=== PATIENT | male | born 1965 | race Caucasian/White ===

== ENCOUNTER 2019-04-06 11:07 | Emergency (ER) | payer BC, OTHER ==
[2019-04-06 11:25] VITALS: BP 151/106
--- NOTE | 2019-04-06 12:19 | UC ---
Lower Extremity/Ankle HPI - HPI Summary HPI Summary: 53-year-old male presents with complaints of onset of right ankle and great toe pain, redness, and swelling 4 days ago. Patient has a history of gout states this is very similar to his past flareups. States he is able to walk and bear weight although with some discomfort. Does not some limited range of motion to the ankle. He has been taking indomethacin with no improvement in symptoms. Denies fever, chills, numbness, tingling, or injury. - History of Current Complaint Chief Complaint: UCLowerExtremity Stated Complaint: FOOT AND ANKLE PAIN Time Seen by Provider: 04/06/19 12:04 Hx Obtained From: Patient Pain Intensity: 8 - Allergies/Home Medications Allergies/Adverse Reactions: Allergies Allergy/AdvReac Type Severity Reaction Status Date / Time No Known Allergies Allergy Verified 04/06/19 11:25 Home Medications: Home Medications Atorvastatin* [Lipitor*] 40 mg PO 1700 04/06/19 [History Confirmed 04/06/19] Cholecalciferol TAB* [Vitamin D TAB*] 2,000 units PO DAILY 04/06/19 [History Confirmed 04/06/19] Olmesartan Medoxomil [Benicar] 5 mg PO DAILY 04/06/19 [History Confirmed ] PMH/Surg Hx/FS Hx/Imm Hx - Additional Past Medical History Additional PMH: Gout Endocrine History: Dyslipidemia Cardiovascular History: Hypertension - Surgical History Surgical History: Yes Surgery Procedure, Year, and Place: right knee meniscus, left wrist repair, AC recession repair - Family History Known Family History: Positive: Non-Contributory - Social History Occupation: Employed Full-time Lives: With Family Alcohol Use: None Alcohol Amount: 4-5 Substance Use Type: None Smoking Status (MU): Never Smoked Tobacco Amount Used/How Often: 4 cans/week Review of Systems All Other Systems Reviewed And Are Negative: Yes Constitutional: Negative: Fever, Chills Skin: Negative: Rash Respiratory: Positive: Negative Cardiovascular: Positive: Negative Gastrointestinal: Positive: Negative Genitourinary: Positive: Negative Motor: Negative: Weakness Neurovascular: Negative: Decreased Sensation Musculoskeletal: Positive: Arthralgia - See HPI, Decreased ROM. Negative: Calf Tenderness Neurological: Positive: Negative Is Patient Immunocompromised?: No Physical Exam - Summary Physical Exam Summary: GENERAL APPEARANCE: Well developed, well nourished, alert and cooperative, and appears to be in no acute distress. CARDIAC: Normal S1 and S2. No S3, S4 or murmurs. Rhythm is regular. There is no peripheral edema, cyanosis or pallor. Extremities are warm and well perfused. Capillary refill is less than 2 seconds. Peripheral pulses intact. LUNGS: Clear to auscultation without rales, rhonchi, wheezing or diminished breath sounds. ABDOMEN: Positive bowel sounds. Soft, nondistended, nontender. No guarding or rebound. No masses or hepatosplenomegally. MUSKULOSKELETAL: Normal muscular development. EXTREMITIES: Erythema, edema, and mildly increased warmth to the left ankle and great toe. ROM to the ankle is mildly reduced. No gross deformity. Circulation and sensation intact. SKIN: Skin normal color, texture and turgor. Triage Information Reviewed: Yes Vital Signs: Initial Vital Signs Temp 98.6 F 04/06/19 11:17 Pulse 89 04/06/19 11:17 Resp 16 04/06/19 11:17 BP 151/106 04/06/19 11:17 Pulse Ox 100 04/06/19 11:17 Vital Signs Reviewed: Yes Lower Extremity Course/Dx - Course Course Of Treatment: 53-year-old male presents with complaints of onset of right ankle and great toe pain, redness, and swelling 4 days ago. Patient has a history of gout states this is very similar to his past flareups. States he is able to walk and bear weight although with some discomfort. Does not some limited range of motion to the ankle. He has been taking indomethacin with no improvement in symptoms. Denies fever, chills, numbness, tingling, or injury. Afebrile. Hypertensive otherwise vital signs stable. Patient had erythema, edema, and mildly increased warmth to the left ankle and great toe. ROM to the ankle is mildly reduced. No gross deformity. Circulation and sensation intact. Remainder of exam was unremarkable. Discussed with patient that his symptoms are consistent with a flareup of his gout and without a history of injury do not feel that there would be much benefit to x-rays at this time. I will have the patient stop his indomethacin and start him on a prednisone taper as well as continued conservative treatment for a gout flareup. He is to follow-up with his primary care provider in 3-5 days if symptoms are not improving. Anticipatory guidance and warning symptoms were reviewed with the patient. Verbalizes understanding and agrees with plan of care. - Differential Dx/Diagnosis Differential Diagnosis/HQI/PQRI: Arthritis, Gout, Sprain Provider Diagnosis: Gouty arthritis of right great toe, Gout of right ankle Discharge ED - Sign-Out/Discharge Documenting (check all that apply): Patient Departure All imaging exams completed and their final reports reviewed: No Studies - Discharge Plan Condition: Stable Disposition: HOME Prescriptions: predniSONE TAB* [Deltasone 10 MG TAB*] 10 mg PO DAILY #30 tab Patient Education Materials: Gout (ED) Forms: *Work Release Referrals: Torey Barksdale MD [Primary Care Provider] - 3 Days Additional Instructions: Your symptoms are consistent with a flare up of your gout. Stop the indomethacin. Start prednisone taper. Take 40 mg (4 tabs) for 3 days, then 30 mg (3 tabs) for 3 days, then 20 mg (2 tabs) for 3 days, then 10 mg (1 tab) according to directions then stop. Rest as much as possible. You may continue to do some icing of the ankle to help reduce the swelling. Follow-up with your primary care provider in 3-5 days if symptoms are not improving. Seek immediate medical attention in the emergency room if you develop fever greater than 100.5 F, have severe pain, increased swelling, numbness or tingling in the foot or toes, or any worsening of symptoms. - Billing Disposition and Condition Condition: STABLE Disposition: Home
== END 2019-04-06 12:37 | disposition home or self-care (01) ==
LOC: UCEAST 11:07
DX: M10.9 Gout, unspecified (principal); I10 Essential (primary) hypertension; E78.5 Hyperlipidemia, unspecified; Z79.899 Other long term (current) drug therapy
CPT/HCPCS: 99212; G0463

== ENCOUNTER 2019-08-26 18:16 | Emergency (ER) | payer BC ==
--- OUTSIDE RECORDS SUMMARY | 2019-08-26 20:22 | XMS REPORT | Continuity of Care Document ---
:1965 External Reference #:[id number] Author Name Philip Jose MD (transmitted by agent of provider Joellen Tinoco) Address [address] [place] [id number] Care Team Providers Name Role Phone Torey Barksdale MD - Family Care Team Information Reconciliation Specialist Medicine Problems Description No Information Available Social History Type Date Description Comments Sex Unknown Tobacco Use Start: Unknown Patient has never smoked Smoking Status Reviewed: 07/29/19 Patient has never smoked Allergies, Adverse Reactions, Alerts Description No Known Drug Allergies Medications Active Medications SIG Qnty Indications Ordering Provider Date Naproxen one tab by 180tabs [id number] Philip Jose, 07/29/2019 500mg Tablets mouth twice MD daily Allopurinol 1 by mouth Unknown 300mg Tablets every day Olmesartan Medoxomil 1 by mouth Unknown 20mg every day Tablets Atorvastatin Calcium 1 by mouth Unknown 80mg every day Tablets Sildenafil Citrate use daily as Unknown 100mg needed Tablets Aspirin Ec Low Dose 1 by mouth Unknown 81mg every day Tablets DR Vitamin D High Potency once a day Unknown 25mcg (1000 Ut) Capsules Multi Vitamin 1 by mouth Unknown Tablets every day Immunizations Description No Information Available Vital Signs Date Vital Result Comment 07/29/2019 10:00am Height 72 inches 6'0" Weight 236.00 lb Heart Rate 80 /min BP Systolic 156 mmHg BP Diastolic 90 mmHg Body Temperature 97.1 F Pain Level 0 O2 % BldC Oximetry 96 % BMI (Body Mass Index) 32.0 kg/m2 Results Description No Information Available Procedures Description No Information Available Medical Devices Description No Information Available Encounters Description No Information Available Assessments Date Code Description Provider 07/29/2019 [id number] Idiopathic chronic gout, unspecified site, Philip Jose MD with tophus (tophi) Plan of Treatment Future Appointment(s):09/13/2019 4:00 pm - Philip Jose MD at [facility]07/29/2019 - Philip Jose, [id number] Idiopathic chronic gout, unspecified site, with tophus (tophi)New Medication:Naproxen 500 mg - one tab by mouth twice dailyFollow up:6-8 weeks Functional Status Description No Information Available Mental Status Description No Information Available Referrals Description No Information Available
[2019-08-26 20:48] VITALS: BP 207/119
[2019-08-26 21:08] LABS: Influenza A Molecular Negative (Negative); Influenza B Molecular Negative (Negative)
[2019-08-26] MEDS ORDERED: Albuterol HFA INHALER* 8 gm MDI INH ONE (21:29)
[2019-08-26] MEDS ORDERED: Amoxicillin PO (*) 500 MG CAP PO ONE (21:30)
--- NOTE | 2019-08-26 21:31 | UC ---
Throat Pain/Nasal Mayur HPI - HPI Summary HPI Summary: 53-year-old male comes in with a chief complaint of rhinorrhea sinus pressure and postnasal drip and some wheezing for 2 days. Patient's been exposed to influenza and strep. Rhinorrhea is green. He did try some [id number] medicines which only helped minimally with the symptoms. Has had some wheezing no history of asthma. He has not been able to bring up any sputum. - History of Current Complaint Chief Complaint: UCRespiratory Stated Complaint: CONGESTED Time Seen by Provider: 08/26/19 20:45 Pain Intensity: 4 - Allergies/Home Medications Allergies/Adverse Reactions: Allergies Allergy/AdvReac Type Severity Reaction Status Date / Time No Known Allergies Allergy Verified 08/26/19 20:42 Home Medications: Home Medications Atorvastatin* [Lipitor*] 40 mg PO 1700 04/06/19 [History Confirmed 04/06/19] Cholecalciferol TAB* [Vitamin D TAB*] 2,000 units PO DAILY 04/06/19 [History Confirmed 04/06/19] Olmesartan Medoxomil [Benicar] 5 mg PO DAILY 04/06/19 [History Confirmed ] Amoxicillin PO (*) [Amoxicillin 875 MG (*)] 875 mg PO BID #20 tab 08/26/19 [Rx] PMH/Surg Hx/FS Hx/Imm Hx Previously Healthy: Yes Endocrine History: Dyslipidemia Cardiovascular History: Hypertension - Surgical History Surgical History: Yes Surgery Procedure, Year, and Place: right knee meniscus, left wrist repair, AC recession repair - Family History Known Family History: Positive: Non-Contributory - Social History Alcohol Use: None Alcohol Amount: 4-5 Substance Use Type: None Smoking Status (MU): Never Smoked Tobacco Amount Used/How Often: 4 cans/week Review of Systems All Other Systems Reviewed And Are Negative: Yes Constitutional: Positive: Other - SEE HPI Skin: Positive: Negative Eyes: Positive: Negative ENT: Positive: Sore Throat, Nasal Discharge, Sinus Congestion, Sinus Pain/ Tenderness Respiratory: Positive: Other - SEE HPI Cardiovascular: Positive: Negative Gastrointestinal: Positive: Negative Motor: Positive: Negative Neurovascular: Positive: Negative Musculoskeletal: Positive: Negative Neurological/Mental Status: Positive: Negative Psychological: Positive: Negative Is Patient Immunocompromised?: No Physical Exam Triage Information Reviewed: Yes Appearance: No Pain Distress, Well-Nourished, Ill-Appearing - MILD Vital Signs: Initial Vital Signs Temp 99.3 F 08/26/19 20:42 Pulse 91 08/26/19 20:42 Resp 18 08/26/19 20:42 BP 207/119 08/26/19 20:42 Pulse Ox 96 08/26/19 20:42 Vital Signs Reviewed: Yes Eye Exam: Normal Eyes: Positive: Conjunctiva Clear ENT: Positive: Pharyngeal erythema, Nasal congestion, Nasal drainage, TMs normal Neck: Positive: Supple Respiratory: Positive: Lungs clear, Normal breath sounds, No respiratory distress Cardiovascular: Positive: RRR Musculoskeletal: Positive: Strength Intact, ROM Intact Neurological: Positive: Alert, Muscle Tone Normal Psychological: Positive: Age Appropriate Behavior Skin Exam: Normal Throat Pain/Nasal Course/Dx - Course Course Of Treatment: DISCUSSED VIRAL VERSES BACTERIAL INFECTIONS AND THE ROLE OF ANTIBIOTICS. PATIENT PREFERS TO BE ON ANTIBIOTICS AT THIS TIME. - Differential Dx/Diagnosis Provider Diagnosis: Sinusitis, Bronchospasm Discharge ED - Sign-Out/Discharge Documenting (check all that apply): Patient Departure All imaging exams completed and their final reports reviewed: No Studies - Discharge Plan Condition: Stable Disposition: HOME Prescriptions: Amoxicillin PO (*) [Amoxicillin 875 MG (*)] 875 mg PO BID #20 tab Patient Education Materials: Sinusitis (ED), Bronchospasm (ED) Referrals: Torey Barksdale MD [Primary Care Provider] - Additional Instructions: FOLLOW UP WITH YOUR DOCTOR IF NOT COMPLETELY IMPROVED. GET REEVALUATED SOONER IF NOT IMPROVED OR WORSE OR ANY QUESTIONS OR CONCERNS. - Billing Disposition and Condition Condition: STABLE Disposition: Home
== END 2019-08-26 21:51 | disposition home or self-care (01) ==
LOC: UCEAST 18:16
DX: J32.9 Chronic sinusitis, unspecified (principal); J98.01 Acute bronchospasm; I10 Essential (primary) hypertension; E78.5 Hyperlipidemia, unspecified; Z79.899 Other long term (current) drug therapy
CPT/HCPCS: 87651; 99212; A9270-GY; G0463

== ENCOUNTER 2021-03-06 09:42 | Inpatient (IN) ==
[2021-03-06 10:25] LABS: ABS Lymphocytes 0.3 10^3/ul (1.0-4.8); ABS Monocytes 0.2 10^3/ul (0-0.8); ABS Neutrophils 3.3 10^3/ul (1.5-7.7); Eosinophil % 0.1 %; Hematocrit 45 % (42-52); Hemoglobin 16.1 g/dL (14.0-18.0); Lymphocyte % 7.3 %; Mean Corpuscular HGB Conc 36 g/dL (31-36); Mean Corpuscular Hemoglobin 33 pg (27-31); Mean Corpuscular Volume 91 fL (80-94); Red Blood Count 4.94 10^6 /uL (4.18-5.48); Red Cell Distribution Width 13 % (10-15); White Blood Count 3.7 10^3/uL (3.5-10.8)
[2021-03-06 10:42] LABS: ALT 46 U/L (7-52); AST 48 U/L (13-39); Albumin 3.9 g/dL (3.2-5.2); Albumin/Globulin Ratio 1.3 (1-3); Alkaline Phosphatase 96 U/L (35-149); Anion Gap 8 mmol/L (2-11); Blood Urea Nitrogen 14 mg/dL (6-24); CO2 Carbon Dioxide 24 mmol/L (22-32); Calcium 8.4 mg/dL (8.6-10.3); Chloride 97 mmol/L (101-111); EGFR African American 76.6 (>60); EGFR Non-African American 63.3 (>60); Glucose 117 mg/dL (70-100); Potassium 3.8 mmol/L (3.5-5.0); Sodium 129 mmol/L (135-145); Total Protein 6.9 g/dL (6.4-8.9)
[2021-03-06] MEDS ORDERED: Iohexol 350 (CONTRAST) 500 ML MDV IV ONE (11:06)
[2021-03-06 11:18] LABS: Mean Platelet Volume 10.5 fL (7.4-10.4); Platelet Count 89 10^3/uL (150-450)
[2021-03-06] MEDS ORDERED: Lactated Ringers 1000 ml BAG 1,000 ML IV SCH (13:00)
[2021-03-06 15:14] LABS: INR 1.16 (0.86-1.15)
[2021-03-06 15:33] LABS: Troponin I 0.03 ng/mL (<0.03)
[2021-03-06 15:38] LABS: Ferritin 1060.9 ng/mL (24-336)
[2021-03-06 15:39] LABS: LDH 323 U/L (140-271)
[2021-03-06 15:54] LABS: CRP High Sensitivity 73.14 mg/L (<2.00)
[2021-03-06] MEDS ORDERED: Remdesivir 100 mg Vial 200 MG in NS 0.9% 250 ml 210 ML IV ONE (16:30)
[2021-03-06] MEDS: D5LR 1000 ml BAG 1,000 ML IV SCH (19:57)
[2021-03-06] MEDS: Enoxaparin 40 MG/0.4 ML SYR SUBCUT SCH (20:51)
[2021-03-06 21:07] LABS: Troponin I 0.03 ng/mL (<0.03)
[2021-03-06] MEDS: cefTRIAXone 1 gm/50 mL NS BAG 1 GM/50 ML BAG IVPB SCH (23:23)
[2021-03-07 00:23] LABS: Troponin I 0.04 ng/mL (<0.03)
[2021-03-07 03:35] LABS: Albumin 3.4 g/dL (3.2-5.2); Calcium 7.8 mg/dL (8.6-10.3); Potassium 4.2 mmol/L (3.5-5.0); Total Bilirubin 0.4 mg/dL (0.2-1.0)
[2021-03-07 03:41] LABS: Albumin/Globulin Ratio 1.5 (1-3); EGFR African American 84.7 (>60); Globulin 2.3 g/dL (2-4); Total Protein 5.7 g/dL (6.4-8.9)
[2021-03-07 03:43] LABS: Troponin I 0.03 ng/mL (<0.03)
[2021-03-07 03:58] LABS: ABS Lymphocytes 0.4 10^3/ul (1.0-4.8); ABS Monocytes 0.2 10^3/ul (0-0.8); ABS Neutrophils 1.7 10^3/ul (1.5-7.7); Hematocrit 43 % (42-52); Lymphocyte % 16.6 %; Mean Corpuscular HGB Conc 35 g/dL (31-36); Mean Corpuscular Hemoglobin 32 pg (27-31); Mean Corpuscular Volume 92 fL (80-94); Mean Platelet Volume 10.4 fL (7.4-10.4); Nucleated Red Blood Cells % 0.4; Platelet Count 97 10^3/uL (150-450); Red Blood Count 4.65 10^6 /uL (4.18-5.48); Red Cell Distribution Width 13 % (10-15); White Blood Count 2.3 10^3/uL (3.5-10.8)
[2021-03-07] MEDS: D5LR 1000 ml BAG 1,000 ML IV SCH (05:14)
[2021-03-07 07:31] LABS: INR 1.11 (0.86-1.15)
[2021-03-07] MEDS: Cholecalciferol (VIT D3) 1,000 unit TAB PO SCH (09:28)
[2021-03-07] MEDS: Enoxaparin 40 MG/0.4 ML SYR SUBCUT SCH (09:29)
[2021-03-07] MEDS ORDERED: hydrALAZINE 20 mg/ml 1 ML Vial IV IV SLOW PU PRN (19:38)
[2021-03-07] MEDS ORDERED: Remdesivir 100 mg Vial 100 MG in NS 0.9% 250 ml 230 ML IV SCH (21:00)
[2021-03-07] MEDS: cefTRIAXone 1 gm/50 mL NS BAG 1 GM/50 ML BAG IVPB SCH (21:36)
[2021-03-08 06:19] LABS: INR 1.03 (0.86-1.15)
[2021-03-08 06:20] LABS: Hematocrit 43 % (42-52); Hemoglobin 15.1 g/dL (14.0-18.0); Mean Corpuscular HGB Conc 35 g/dL (31-36); Mean Corpuscular Hemoglobin 33 pg (27-31); Mean Corpuscular Volume 92 fL (80-94); Red Blood Count 4.66 10^6 /uL (4.18-5.48); Red Cell Distribution Width 13 % (10-15); White Blood Count 4.9 10^3/uL (3.5-10.8)
[2021-03-08 06:21] LABS: ABS Lymphocytes 0.6 10^3/ul (1.0-4.8); ABS Monocytes 0.5 10^3/ul (0-0.8); ABS Neutrophils 3.8 10^3/ul (1.5-7.7); Lymphocyte % 12.9 %; Nucleated Red Blood Cells % 0.1
[2021-03-08 07:25] LABS: Large Platelets Present; Mean Platelet Volume 10.3 fL (7.4-10.4); Platelet Count 120 10^3/uL (150-450)
[2021-03-08] MEDS: Cholecalciferol (VIT D3) 1,000 unit TAB PO SCH (08:53)
[2021-03-08] MEDS: Enoxaparin 40 MG/0.4 ML SYR SUBCUT SCH (08:53)
[2021-03-08 17:19] VITALS: BP 172/94
== END 2021-03-08 18:45 | disposition home or self-care (01) | DRG 137 ==
LOC: ED 09:42 → MED 09:42 → OBSVTOIN 19:06
PROVIDERS: ADMIT Internal Medicine; ATTEND Internal Medicine